=== PATIENT | female | born 1955 | race Caucasian/White ===

== ENCOUNTER 2017-02-06 17:03 | Emergency (ER) | payer OTHER ==
[~2017-02-06] VITALS: Wt 69.0 kg
[2017-02-06] MEDS ORDERED: morphine 4 MG/ML VIAL IV STA (18:14)
[2017-02-06] MEDS ORDERED: SOD CHLORIDE 0.9% 500 ML IV STA (18:14)
[2017-02-06] MEDS ORDERED: GABA400C14 PO (18:40)
[2017-02-06] MEDS ORDERED: METF1000 PO (18:40)
[2017-02-06] MEDS ORDERED: LANT3I SC (18:41)
[2017-02-06] MEDS ORDERED: GLIM4TAB PO (18:46)
[2017-02-06 18:50] LABS: ADD SCAN DIFF NO
[2017-02-06 18:52] LABS: BASOPHILS % 0.2 % (0.0-2.0); EOSINOPHILS # 0.2 10^3/ul (0.0-0.5); EOSINOPHILS % 3.6 % (0.0-7.0); HEMATOCRIT 37.2 % (37.0-47.0); LYMPHOCYTES # 1.6 10^3/ul (0.8-2.9); LYMPHOCYTES % 37.8 % (15.0-51.0); MEAN CORPUSCULAR HEMOGLOBIN 27.3 pg (29.0-33.0); MEAN CORPUSCULAR HGB CONC 32.3 g/dl (32.0-37.0); MEAN CORPUSCULAR VOLUME 84.5 fl (82.0-101.0); MEAN PLATELET VOLUME 10.5 fl (7.4-10.4); MONOCYTE # 0.3 10^3/ul (0.3-0.9); MONOCYTES % 6.3 % (0.0-11.0); NEUTROPHIL # 2.2 10^3/ul (1.6-7.5); NEUTROPHILS % 51.9 % (39.0-77.0); PLATELET COUNT 229 10^3/UL (140-415); RED CELL DISTRIBUTION WIDTH 14.9 % (11.5-14.5); WHITE BLOOD COUNT 4.2 10^3/ul (4.8-10.8)
--- NOTE | 2017-02-06 18:59 | RADRPT ---
PROCEDURE: CT abdomen and pelvis without contrast. CLINICAL INDICATION: Left upper quadrant flank pain TECHNIQUE: CT scan of the abdomen and pelvis without contrast was performed. Sagittal and coronal reformatted images were obtained from the axial source images. CTDI = 16.02 mGy; DLP = 917.33 mGy-c m COMPARISON: None available. FINDINGS: Visualized lower thorax: The lung bases are clear. There is no evidence for pleural effusion. Liver, gallbladder, pancreas and spleen: Hepatomegaly of 20 cm is present with low attenuation of t he liver parenchyma consistent with severe hepatic steatosis, liver contour is preserved. There is no evidence for a liver mass or ductal dilatation. Findings are compatible with prior cholecystecto my. No common bile duct abnormality is demonstrated. The pancreas is unremarkable. The spleen is normal in size. Adrenal glands and genitourinary system: The adrenal glands are normal bilaterally. The kidneys are normal and size, contour and attenuation with no evidence for masses, calculi or hydronephrosis. T he ureters are unremarkable. No urinary bladder abnormality is demonstrated. There is a lobulated in contour and enlarged for the patient's age with multiple uterine corpus calcifications consistent with leiomyomata. There is no evidence of ovarian or adnexal mass. No free fluid is seen in the c ul-de-sac. Gastrointestinal system: The stomach is normal in caliber with no abnormality of significance. The small bowel is normal in caliber with no ileus, obstruction or wall thickening. The appendix and s urrounding fat are within the limits of normal. The colon shows no evidence for wall thickening or acute abnormality. There is no evidence for colitis or diverticulitis. Peritoneum, retroperitoneum, lymph nodes and vessels: The abdominal aorta is normal in caliber. The re is mild aortic and iliac system atherosclerotic calcification. The inferior vena cava is unremar kable. There is no evidence for adenopathy or mass. There is no ascites. No pneumoperitoneum is pr esent Osseous structures and musculoskeletal findings: There is no fracture, lytic or blastic lesion. Sev ere degenerative disk narrowing and endplate sclerosis is present at L3-4, L4-5 and L5-S1. A small c ystic lesion in the region of the umbilicus is possibly a week are patent with no intraperitoneal ab normality or connection. Calcified granuloma of the left gluteal fat is instantly noted. No muscul ar pathology is seen. RPTAT:HJJR IMPRESSION: 1. No evidence of urinary tract calculi or hydronephrosis. 2. The stomach, spleen and left upper quadrant structures are unremarkable. 3. Hepatomegaly and severe hepatic steatosis. 4. Enlarged leiomyomatous uterus. 5. Previous cholecystectomy. 6. Atherosclerotic calcification of the aorta and iliac systems. 7. Severe degenerative disk disease at L3-4, L4-5 and L5-S1. Adam Kaye Physician Date Time Electronically viewed and signed by Adam Kaye Physician on 02/06/2017 18:58 JR/
[2017-02-06 19:01] LABS: ALBUMIN 4.3 g/dl (3.3-4.9); CHLORIDE 103 mmol/L (97-110); SODIUM 141 mmol/L (135-144)
[2017-02-06 19:02] LABS: POTASSIUM 4.1 mmol/L (3.5-5.1)
[2017-02-06 19:03] LABS: CREATININE 0.85 mg/dl (0.44-1.00)
[2017-02-06 19:04] LABS: ALANINE AMINOTRANSFERASE 63 IU/L (13-69); ALBUMIN/GLOBULIN RATIO 1.34; ALKALINE PHOSPHATASE 120 IU/L (42-121); ANION GAP 13 (8-16); ASPARTATE AMINO TRANSFERASE 41 IU/L (15-46); BILIRUBIN,INDIRECT 0.2 mg/dl (0-1.1); BILIRUBIN,TOTAL 0.2 mg/dl (0.2-1.3); BLOOD UREA NITROGEN 19 mg/dl (7-20); CALCIUM 10.3 mg/dl (8.4-10.2); CARBON DIOXIDE 29 mmol/L (21-31); GLUCOSE 215 mg/dl (70-220); TOTAL PROTEIN 7.5 g/dl (6.1-8.1)
[2017-02-06 19:07] LABS: INR 0.91; PROTIME 12.2 Sec (12.2-14.2)
[2017-02-06 19:08] LABS: PARTIAL THROMBOPLASTIN TIME 34.7 Sec (25.0-35.0)
[2017-02-06 19:19] LABS: TROPONIN-I < 0.012 ng/ml (0.00-0.12)
[2017-02-06 19:24] LABS: ADD UMIC NO; URINE BILIRUBIN (Dip) NEGATIVE (NEGATIVE); URINE BLOOD (Dip) NEGATIVE (NEGATIVE); URINE COLOR LT. YELLOW (YELLOW); URINE KETONES (Dip) NEGATIVE (NEGATIVE); URINE LEUKOCYTE ESTERASE (Dip) NEGATIVE (NEGATIVE); URINE NITRITE (Dip) NEGATIVE (NEGATIVE); URINE TOTAL PROTEIN (Dip) NEGATIVE (NEGATIVE); URINE UROBILINOGEN (Dip) 0.2 E.U./dL (0.1-1.0)
[2017-02-06] MEDS ORDERED: HYDROmorphONE 1 MG/ML SYG IV STA (19:29)
[2017-02-06] MEDS ORDERED: HYDR-906 PO (20:13)
[2017-02-06] MEDS ORDERED: VALA10004 PO (20:13)
[2017-02-06 21:18] VITALS: BP 141/76; RESP 20; TEMP 98.9
--- NOTE | 2017-02-06 21:19 | ERD ---
ER Documentation Chief Complaint Date/Time DATE: 02/06/17 TIME: 21:13 Chief Complaint AP AND LEFT FLANK PAIN FOR THE PAST FEW DAYS. NO FEVERS. NO N/V HPI 61-year-old female with a history of diabetes and fibromyalgia presenting with left flank pain for about 5 days. The pain is burning, throbbing, radiating to her left upper quadrant. It has progressively worsened over the past 5 days. She denies any associated nausea, vomiting, diarrhea, constipation, dysuria, fevers or chills. No recent trauma. Pain is worse with touching the area or with any movement. Nothing seems to help with the pain. Pain is rated as a 10 out of 10. ROS All systems reviewed and are negative except as per history of present illness. Medications Home Meds Active Scripts Hydrocodone/Acetaminophen ([place] 5-325 Tablet) 1 Each Tablet, 1 TAB PO Q6H Y for PAIN, #20 TAB Prov:BRITTANEY FORBES MD 02/06/17 Valacyclovir HCl (Valtrex) 1,000 Mg Tablet, 1000 MG PO TID for 7 Days, TAB Prov:BRITTANEY FORBES MD 02/06/17 Reported Medications Glimepiride* (Glimepiride*) 4 Mg Tablet, 4 MG PO WITH BREAKFAST DINNE, TAB 02/06/17 Insulin Glargine* (Lantus*) 100 Unit/Ml Soln, 50 UNIT SC QHS, #1 VIAL 02/06/17 Gabapentin* (Gabapentin*) 400 Mg Capsule, 400 MG PO BID, #90 CAP 02/06/17 Metformin Hcl* (Metformin Hcl*) 1,000 Mg Tablet, 1000 MG PO WITH BREAKFAST DINNE , #30 TAB 02/06/17 Allergies Allergies: Coded Allergies: No Known Allergy (Unverified , 02/06/17) PMhx/Soc History of Surgery: Yes (, gallbladder) Anesthesia Reaction: No Hx Neurological Disorder: No Hx Respiratory Disorders: No Hx Cardiac Disorders: No Hx Psychiatric Problems: No Hx Miscellaneous Medical Probl: Yes (DM II- Insulin and Oral, fibromyalgia) Hx Alcohol Use: No Hx Substance Use: No Hx Tobacco Use: No Smoking Status: Never smoker FmHx Family History: No diabetes Physical Exam Vitals Vital Signs Date Time Temp Pulse Resp B/P Pulse Ox O2 Delivery O2 Flow Rate FiO2 02/06/17 17:16 98.9 78 20 141/76 98 Physical Exam Const: Nontoxic, well-appearing, distress secondary to pain Head: Atraumatic Eyes: Normal Conjunctiva ENT: Normal External Ears, Nose and Mouth. Neck: Full range of motion..~ No meningismus. Resp: Clear to auscultation bilaterally Cardio: Regular rate and rhythm, no murmurs Abd: Soft, non tender, non distended. No rebound or guarding. Normal bowel sounds. No rashes. Skin: No petechiae or rashes Back: No midline tenderness, left CVA mild tenderness Ext: No cyanosis, or edema Neur: Awake and alert Psych: Normal Mood and Affect Result Diagram: 02/06/170 02/06/17 1840 Results 24 hrs Laboratory Tests Test 02/06/17 18:40 02/06/17 18:45 White Blood Count 4.210^3/ul Red Blood Count 4.4010^6/ul Hemoglobin 12.0g/dl Hematocrit 37.2% Mean Corpuscular Volume 84.5fl Mean Corpuscular Hemoglobin 27.3pg Mean Corpuscular Hemoglobin Concent 32.3g/dl Red Cell Distribution Width 14.9% Platelet Count 58620^3/UL Mean Platelet Volume 10.5fl Neutrophils % 51.9% Lymphocytes % 37.8% Monocytes % 6.3% Eosinophils % 3.6% Basophils % 0.2% Nucleated Red Blood Cells % 0.0/100WBC Neutrophils # 2.210^3/ul Lymphocytes # 1.610^3/ul Monocytes # 0.310^3/ul Eosinophils # 0.210^3/ul Basophils # 0.010^3/ul Nucleated Red Blood Cells # 0.010^3/ul Prothrombin Time 12.2Sec Prothrombin Time Ratio 1.0 INR International Normalized Ratio 0.91 Activated Partial Thromboplast Time 34.7Sec Sodium Level 141mmol/L Potassium Level 4.1mmol/L Chloride Level 103mmol/L Carbon Dioxide Level 29mmol/L Anion Gap 13 Blood Urea Nitrogen 19mg/dl Creatinine 0.85mg/dl Glucose Level 215mg/dl Calcium Level 10.3mg/dl Total Bilirubin 0.2mg/dl Direct Bilirubin 0.00mg/dl Indirect Bilirubin 0.2mg/dl Aspartate Amino Transf (AST/SGOT) 41IU/L Alanine Aminotransferase (ALT/SGPT) 63IU/L Alkaline Phosphatase 120IU/L Troponin I < 0.012ng/ml Total Protein 7.5g/dl Albumin 4.3g/dl Globulin 3.20g/dl Albumin/Globulin Ratio 1.34 Lipase 167U/L Urine Color LT. YELLOW Urine Clarity CLEAR Urine pH 6.0 Urine Specific Cheney 1.015 Urine Ketones NEGATIVE Urine Nitrite NEGATIVE Urine Bilirubin NEGATIVE Urine Urobilinogen 0.2 E.U./dL Urine Leukocyte Esterase NEGATIVE Urine Hemoglobin NEGATIVE Urine Glucose 0.5%% Urine Total Protein NEGATIVE Current Medications Medications (Trade) Dose Ordered Sig/Lisa Route PRN Reason Start Time Stop Time Status Last Admin Dose Admin Sodium Chloride (NS) 500 ml @ 500 mls/hr Q1H STAT IV 02/06/17 18:14 02/06/17 19:13 DC 02/06/17 18:14 Morphine Sulfate (morphine) 6 mg ONCE STAT IV 02/06/17 18:14 02/06/17 18:16 DC 02/06/17 18:45 Hydromorphone HCl (Dilaudid) 1 mg ONCE STAT IV 02/06/17 19:29 02/06/17 19:30 DC 02/06/17 19:57 Procedures/MDM EMERGENT LABS AND DIAGNOSTIC STUDIES: Lab Results above were reviewed and interpreted by me. No significant abnormalities, urinalysis normal 12-lead EKG was interpreted by Delroy Forbes MD: Normal Sinus Rhythm with ventricular rate of 70 beats per minute Normal axis Normal intervals No acute ST or T wave changes suggestive of acute ischemia or STEMI. Radiology Results as interpreted by Radiology below were reviewed by Mariel Forbes MD: CT abdomen and pelvis: IMPRESSION: 1. No evidence of urinary tract calculi or hydronephrosis. 2. The stomach, spleen and left upper quadrant structures are unremarkable. 3. Hepatomegaly and severe hepatic steatosis. 4. Enlarged leiomyomatous uterus. 5. Previous cholecystectomy. 6. Atherosclerotic calcification of the aorta and iliac systems. 7. Severe degenerative disk disease at L3-4, L4-5 and L5-S1. Physician Az Date Time Electronically viewed and signed by Adam Kaye Physician on 02/06/2017 18:58 Initial Nursing notes reviewed. Previous Medical Records requested via the Electronic Health Record. EMERGENCY DEPARTMENT COURSE / MEDICAL DECISION MAKING: The patient is presenting with left flank pain with stable vitals. She is afebrile and well-appearing. Differential includes but is not limited to pyelonephritis, gastritis, ureterolithiasis, retroperitoneal hemorrhage, aortic dissection or aneurysm. Labs were all within normal limits. Her EKG was nonischemic. The CT of her abdomen and pelvis did not show evidence of kidney stones, retroperitoneal abnormalities, or any acute intra-abdominal abnormalities. Her aorta was of normal caliber. I have a low suspicion that she has an aortic dissection. Urinalysis did not show evidence of infection. Her exam does not show evidence of shingles, however the patient's pain is in the right distribution and has the qualities of shingles. I discussed this with the patient and told her that there is a possibility that her symptoms are secondary to shingles with no rash currently which may develop later. I recommended treatment with [place], Valtrex, and I recommended she increase her gabapentin to 3 times a day. Patient is agreeable with this plan. Return precautions were discussed. I advised she follow-up with her primary care doctor in 1-2 days. Patient's blood pressure was elevated (>120/80) but appears stable without evidence of hypertensive emergency or urgency. The patient was counseled about the risks of hypertension and urged to pursue outpatient monitoring and therapy within a week with their primary care physician. Departure Diagnosis: Primary Impression: Neuralgia of abdomen Additional Impression: Neuralgia of left flank Condition: Stable Patient Instructions: Shingles (Herpes Zoster), Flank Pain, Uncertain Cause Referrals: NO PRIMARY,CARE PHYSICIAN Additional Instructions: Increase your Gabapentin to three times daily as we discussed. Your pain may be due to shingles, but without a rash, I cannot say that for sure. Follow up with your doctor in the next 1-2 days. Return for any worsening symptoms. BRITTANEY FORBES MD Feb 06, 2017 21:19
== END 2017-02-06 21:18 | disposition home or self-care (01) ==
LOC: E/R 17:03
DX: G58.8 Other specified mononeuropathies (principal); E11.9 Type 2 diabetes mellitus without complications; Z79.4 Long term (current) use of insulin; Z79.84 Long term (current) use of oral hypoglycemic drugs
CPT/HCPCS: 74176; 80053; 81003; 83690; 84484; 85025; 85610; 85730; 87086; 93005; J1170; J2270; J7040; 36415; 96374; 96375

== ENCOUNTER 2017-07-08 11:41 | Day surgery (SDC) | payer OTHER ==
[2017-07-05 12:24] VITALS: Ht 160 cm; Wt 68.0 kg
[~2017-07-08] VITALS: Ht 160 cm; Wt 68.0 kg
[2017-07-08] VITALS (11 sets, daily range): BP systolic 124–161; BP diastolic 60–83; PULSE 59–86; RESP 8–20
[~2017-07-08 11:41] MED LIST: CEFAZOLIN 1 GM INJ ONE; GABA400C14 PO; GLIM4TAB PO; HYDR-906 PO; LANT3I SC; METF1000 PO; VALA10004 PO
--- NOTE | 2017-07-08 13:51 | HPN ---
Date/Time of Note Date/Time of Note DATE: 07/08/17 TIME: 13:50 Interval H&P Admission Note Pt. seen H&P reviewed: No system changes NAKUL CASTANEDA MD Jul 08, 2017 13:51
--- NOTE | 2017-07-08 13:52 | SIPON ---
Date/Time of Note Date/Time of Note DATE: 07/08/17 TIME: 13:51 Operative Report Preoperative Diagnosis left trigger thumb Postoperative Diagnosis sane Operation/Procedure Performed trigger thumb release Surgeon: NAKUL CASTANEDA MD Estimated Blood Loss: none Transfusion Required: no Specimen: none Grafts/Implants: none Complications: no NAKUL CASTANEDA MD Jul 08, 2017 13:52
[2017-07-08] MEDS ORDERED: MIDAZOLAM 1 MG/ML 2 ML INJ ONE (14:50)
[2017-07-08] MEDS ORDERED: GLYCOPYRROLATE 0.4 MG INJ ONE (14:50)
[2017-07-08] MEDS ORDERED: PROPOFOL 20 ML ONE (14:50)
[2017-07-08] MEDS ORDERED: FENTAnyl 50 MCG/ML VIAL ONE (14:50)
[2017-07-08] MEDS ORDERED: NEOSTIGMINE 3 MG/3 ML SYRINGE ONE (14:50)
[2017-07-08] MEDS ORDERED: ROCURONIUM 50 MG INJ ONE (14:50)
[2017-07-08] MEDS ORDERED: LIDOCAINE 2% (SDV) 5 ML INJ ONE (14:50)
[2017-07-08] MEDS ORDERED: SUGAMMADEX SODIUM 200 MG/2 ML VIAL IV ONE (14:51)
[2017-07-08] MEDS ORDERED: OXYCODONE/ACETAMINOPHEN (5/325) TAB PO PRN ×2 (15:00)
[2017-07-08] MEDS ORDERED: MIDAZOLAM 1 MG/ML 2 ML INJ IV PRN (15:00)
[2017-07-08] MEDS ORDERED: FENTAnyl 50 MCG/ML VIAL IV PRN ×2 (15:00)
[2017-07-08] MEDS ORDERED: ONDANSETRON 4 MG INJ IV PRN (15:00)
[2017-07-08] MEDS ORDERED: MEPERIDINE 25 MG INJ IV PRN (15:00)
[2017-07-08] MEDS ORDERED: LABETALOL HCL 20MG INJ IV PRN (15:00)
[2017-07-08] MEDS ORDERED: hydrALAzine 20 MG INJ IV PRN (15:00)
[2017-07-08] MEDS ORDERED: EPHEDrine SULFATE 50 MG/5 ML SYG IV PRN (15:00)
[2017-07-08] MEDS ORDERED: DIPHENHYDRAMINE 50 MG INJ IV PRN (15:00)
[2017-07-08] MEDS ORDERED: HYDROmorphONE (0.2 MG/ML) 10ML SYG IV PRN ×2 (15:00)
[2017-07-08] MEDS ORDERED: ATROPINE 1 MG/10 ML SYRINGE IV PRN (15:00)
[2017-07-08] MEDS ORDERED: morphine (1 MG/ML) 10ML SYRINGE IV PRN ×2 (15:00)
[2017-07-08] MEDS ORDERED: LIDOCAINE 1% (STERILE-PAK) 30 ML INJ ONE (15:16)
[2017-07-08] MEDS: HYDROmorphONE (0.2 MG/ML) 10ML SYG IV PRN ×3 (15:40→15:56)
[2017-07-08] MEDS: morphine (1 MG/ML) 10ML SYRINGE IV PRN ×2 (15:43→15:50)
[2017-07-08] MEDS ORDERED: ROPIVACAINE 0.5 % 30 ML VIAL ONE (15:56)
[2017-07-08] MEDS ORDERED: LIDOCAINE 2%/EPI 30 ML INJ ONE (15:57)
--- NOTE | 2017-07-08 20:40 | OPR ---
DATE OF OPERATION: 07/08/2017 PREOPERATIVE DIAGNOSIS: Left trigger thumb. POSTOPERATIVE DIAGNOSIS: Left trigger thumb. OPERATION PERFORMED: Left trigger thumb release, A1 katarzyna release. SURGEON: Ori Mitchell MD CNA GNA: appraisal technician, [place]. ANESTHESIA: General anesthetic by the anesthesiologist. OPERATIVE PROCEDURE: I reexamined the patient in the preop holding area. I connie in the surgical incision. I showed the marked drawn surgical incision to the patient. I confirmed the operative procedure, plan with patient wide awake. Informed consent: At time we scheduled the operative procedure, we talked to the patient about the risks and hazards of surgery, talked about operative mortality, wound infection, nerve injury, good result, bad result, the potential complications. Patient signed the note confirming that informed consent conversation. Patient taken to surgery, anesthetized as above. Sterile prep and drape performed. Pneumatic tourniquet inflated to 250 mmHg. A small transverse centimeter to 1.5-cm incision made overlying the A1 katarzyna. The flexor tendon sheath was identified. The neurovascular bundle was protected behind retractors. The sheath was incised with the knife shallowly in a superficial manner and then split with scissors proximally and distally, taking care to protect the A2 katarzyna. Wound was closed with an interrupted Vicryl Rapide suture, and a bulky dressing applied. DISCHARGE MEDICATION: 1. Hydrocodone. 2. Acetaminophen. 3. Keflex. FOLLOWUP: Will be in my office in a week. Dictated By: Ori Mitchell MD /sasha/michel /Document#: [id number] GUERA
== END 2017-07-08 17:03 | disposition home or self-care (01) ==
LOC: SDS 11:41
PROVIDERS: ATTEND Orthopaedic Surgery Hand Surgery
DX: M65.312 Trigger thumb, left thumb (principal); E11.9 Type 2 diabetes mellitus without complications
CPT/HCPCS: 26055; 82962; J0690; J1170; J2250; J2270; J2405; J3010; Z7512; Z7610; J2710; J2795

== ENCOUNTER 2018-02-13 07:49 | Day surgery (SDC) | END 2018-02-13 11:11 | disposition home or self-care (01) ==